=== PATIENT | male | born 1970 | race African-American/Black ===

== ENCOUNTER 2020-01-27 10:06 | Inpatient (IN) | payer MEDICAID, OTHER ==
[~2020-01-27] VITALS: Ht 180.3 cm; Wt 99.0 kg
[2020-01-27] MEDS ORDERED: ONDANSETRON HCL 4MG/2ML INJ IV STA (10:23)
[2020-01-27] MEDS ORDERED: FAMOTIDINE 20MG/2ML VIAL IV STA (10:23)
[2020-01-27 11:14] LABS: BASOPHILS % 0.3 % (0.0-2.0); EOSINOPHILS % 0.1 % (0.0-5.0); HEMATOCRIT. 46.6 % (42.0-52.0); HEMOGLOBIN. 15.4 g/dL (14.0-18.0); LYMPHOCYTES % 10.4 % (20.0-50.0); MEAN CORPUSCULAR VOLUME 84.6 fL (80.0-94.0); MEAN PLATELET VOLUME 9.7 fl (7.4-10.4); MONOCYTES % 2.6 % (2.0-8.0); NEUTROPHILS % 86.6 % (40.0-76.0); PLATELET 170 x1000/uL (130-400); RED BLOOD CELL COUNT 5.51 mill/uL (4.7-6.1); RED CELL DISTRIBUTION WIDTH 17.5 % (11.6-14.6)
[2020-01-27 11:17] LABS: CHLORIDE 106 mEq/L (98-107)
[2020-01-27 11:20] LABS: PROTHROMBIN TIME 11.1 sec (9.6-11.0)
[2020-01-27] MEDS ORDERED: SODIUM CHLORIDE 0.9% 1,000 ML IV ONE (11:20)
[2020-01-27 11:22] LABS: ETHANOL BLOOD < 10 mg/dL
[2020-01-27 13:29] LABS: CLARITY URINE CLEAR (CLEAR); COLOR URINE YELLOW (YELLOW); KETONES URINE NEGATIVE (NEGATIVE); LEUKOCYTE ESTERASE URINE NEGATIVE (NEGATIVE); NITRITE URINE NEGATIVE (NEGATIVE); OCCULT BLOOD URINE NEGATIVE (NEGATIVE); PH URINE 7.5 (4.5-8.0); PROTEIN URINE 1+ (NEGATIVE); SPECIFIC GRAVITY URINE 1.021 (1.005-1.030); UROBILINOGEN URINE 0.2 E.U./dL (0.2-1.0)
[2020-01-27 13:48] LABS: *BARBITURATES SCREEN URINE NEGATIVE (NEGATIVE); *BENZODIAZEPINES SCREEN URINE NEGATIVE (NEGATIVE); *COCAINE SCREEN URINE NEGATIVE (NEGATIVE)
[2020-01-27 13:49] LABS: *AMPHETAMINES SCREEN URINE NEGATIVE (NEGATIVE); CANNABINOID URINE SCREEN NEGATIVE (NEGATIVE); METHADONE URINE SCREEN NEGATIVE (NEGATIVE); OPIATES URINE SCREEN NEGATIVE (NEGATIVE); PHENCYCLIDINE URINE SCREEN NEGATIVE (NEGATIVE)
[2020-01-27] MEDS ORDERED: ENALAPRIL 2.5MG/2ML VIAL 2ML IV ONE (14:15)
[2020-01-27] MEDS ORDERED: MECLIZINE 25MG TABLET PO ONE (17:00)
[2020-01-27] MEDS: ENOXAPARIN 40MG/0.4ML SYR SUBCUT SCH (18:00)
[2020-01-27] MEDS ORDERED: ACETAMINOPHEN 325MG TABLET PO PRN (18:15)
[2020-01-27] MEDS ORDERED: ONDANSETRON HCL 4MG/2ML INJ IV PRN (18:15)
[2020-01-27] MEDS: SODIUM CHLORIDE 0.9% 1,000 ML IV SCH (18:25)
[2020-01-27 18:30] LABS: PHOSPHORUS 2.6 mg/dL (2.5-4.9)
[2020-01-27] MEDS: CLONIDINE 0.1MG TABLET PO PRN (19:55)
[2020-01-27 23:00] VITALS: BP 160/101
[2020-01-27 23:56] VITALS: BP 160/101
[2020-01-28 04:37] VITALS: BP 151/94
[2020-01-28 06:13] LABS: CHLORIDE 105 mEq/L (98-107)
[2020-01-28 06:27] LABS: LDL CHOLESTEROL 73 mg/dL (5-100)
[2020-01-28 06:29] LABS: HDL CHOLESTEROL 71 mg/dL (40-59)
[2020-01-28 06:38] LABS: BASOPHILS % 0.3 % (0.0-2.0); EOSINOPHILS % 0.3 % (0.0-5.0); HEMATOCRIT. 44.9 % (42.0-52.0); HEMOGLOBIN. 14.9 g/dL (14.0-18.0); LYMPHOCYTES % 25.7 % (20.0-50.0); MEAN CORPUSCULAR HEMOGLOBIN 28.1 pg (28.0-32.0); MEAN CORPUSCULAR VOLUME 84.5 fL (80.0-94.0); MEAN PLATELET VOLUME 9.7 fl (7.4-10.4); MONOCYTES % 7.9 % (2.0-8.0); NEUTROPHILS % 65.8 % (40.0-76.0); PLATELET 160 x1000/uL (130-400); RED BLOOD CELL COUNT 5.31 mill/uL (4.7-6.1); RED CELL DISTRIBUTION WIDTH 17.1 % (11.6-14.6)
[2020-01-28] MEDS ORDERED: DEXTROSE 50% WATER 50ML SYRINGE IV PRN (07:45)
[2020-01-28] MEDS ORDERED: INSULIN LISPRO 100 UNITS/ML SUBCUT SCH (07:50)
[2020-01-28] MEDS: BLOOD SUGAR DIAGNOSTIC STRIP TEST SCH ×4 (07:55→21:00)
[2020-01-28 08:00] VITALS: BP 137/92
[2020-01-28 12:00] VITALS: BP 141/90
[2020-01-28] MEDS: SODIUM CHLORIDE 0.9% 1,000 ML IV SCH ×2 (12:28→20:47)
[2020-01-28 16:00] VITALS: BP 133/95
[2020-01-28 20:21] VITALS: BP 148/89
[2020-01-28] MEDS: ENOXAPARIN 40MG/0.4ML SYR SUBCUT SCH (22:07)
[2020-01-28 23:52] VITALS: BP 140/85
[2020-01-29] VITALS (7 sets, daily range): BP systolic 126–175; BP diastolic 84–108
[2020-01-29] MEDS: BLOOD SUGAR DIAGNOSTIC STRIP TEST SCH ×2 (07:23→12:51)
[2020-01-29] MEDS: INSULIN LISPRO 100 UNITS/ML SUBCUT SCH ×3 (07:23→17:19)
[2020-01-29] MEDS: CLONIDINE 0.1MG TABLET PO PRN ×2 (08:44→17:03)
[2020-01-29] MEDS: SODIUM CHLORIDE 0.9% 1,000 ML IV SCH (10:07)
[2020-01-29] MEDS ORDERED: MECL-183 MT (13:45)
[2020-01-29] MEDS ORDERED: AMLO5TAB88 MT (13:45)
== END 2020-01-29 17:50 | disposition home or self-care (01) | DRG 48 ==
LOC: ER 10:06 → 6WST 16:29 → EDBEDREQ 16:35 → EDBEDREQTM 16:37 → ENRESERV 20:19
PROVIDERS: ADMIT Internal Medicine; ATTEND Internal Medicine
DX: G90.8 Other disorders of autonomic nervous system (principal); E11.9 Type 2 diabetes mellitus without complications; E66.9 Obesity, unspecified; I10 Essential (primary) hypertension; E86.1 Hypovolemia; F10.10 Alcohol abuse, uncomplicated; Z68.30 Body mass index [BMI] 30.0-30.9, adult
CPT/HCPCS: 36415; 71045; 80053; 80061; 80305; 80320; 81003; 82962; 83036; 83735; 84100; 84443; 84484; 85025; 93005; 93970; 96361; 96374; 96375; 99285; J1650; J2405; J3490; J7030; J8597; G0480